=== PATIENT | male | born 1945 | race Caucasian/White ===

== ENCOUNTER → 2018-03-11 | Outpatient (CLI) | payer MEDICARE, OTHER ==
[~2018-03-11] MED LIST: ACETAMINOPHEN-120 ML PO; B-COMPLEX 100400 MC1; CRANBERRY400 MG; FLUOXETINE HCL20 M1; GLEEVEC400 MG; GLUCOPHAGE500 MG; HYDROCHLOROTHIA25 M1; LISINOPRIL40 MG; NEURONTIN 300300 M1; NEXIUM40 MG; PREDNISONE 5 MG5 M1; SULFASALAZINE500 M1; TOBRASOL5 ML OP; VICODIN 5-5001 EACH PO
== END ==
LOC: M.RAD 11:38
DX: M25.562 Pain in left knee (principal); M25.552 Pain in left hip

== ENCOUNTER → 2018-12-03 | Outpatient (CLI) | payer MEDICARE, OTHER | LOC: M.RAD 11:57 | DX: M11.262 Other chondrocalcinosis, left knee (principal); M76.892 Other specified enthesopathies of left lower limb, excluding foot; I70.8 Atherosclerosis of other arteries; M25.852 Other specified joint disorders, left hip; M25.752 Osteophyte, left hip ==

== ENCOUNTER → 2018-12-09 | Outpatient (CLI) | payer MEDICARE, OTHER | LOC: M.ULTRA 12:43 | DX: I70.223 Atherosclerosis of native arteries of extremities with rest pain, bilateral legs (principal) ==

== ENCOUNTER → 2019-04-08 | Outpatient (CLI) | payer MEDICARE, OTHER | LOC: M.RAD 12:05 | DX: J98.4 Other disorders of lung (principal) ==